=== PATIENT | female | born 1985 | race African-American/Black ===

== ENCOUNTER 2021-08-08 19:46 | Emergency (ER) | payer OTHER, SELFPAY ==
[2021-08-08 20:07] VITALS: BP 138/91; PULSE 76; RESP 16; TEMP 36.3; O2SAT 100; BMI 26.6
[2021-08-08 21:28] VITALS: BP 144/89; PULSE 62; RESP 16; O2SAT 100
[2021-08-08 22:02] LABS: Hematocrit 37.5 % (37-47); Hemoglobin 12.7 g/dl (12.0-16.0); Mean Corpuscular HGB Conc 33.9 g/dl (31.0-35.0); Mean Corpuscular Hemoglobin 32.8 pg (27.0-33.0); Mean Corpuscular Volume 96.9 fL (80-98); Mean Platelet Volume 11.5 fL (9.4-12.3); Platelet Count 178 X10*3/uL (160-400); Red Blood Count 3.87 X10*6/uL (4.20-5.50); Red Cell Distribution Width 13.6 % (11.0-16.0)
[2021-08-08 22:03] LABS: WBC ABN SCTR FOR CBC 1
[2021-08-08 22:03] LABS: Appearance Urine HAZY; Color Urine YELLOW; Glucose Urine UA NEG (NEG); Leukocyte Esterase Urine NEG (NEG); Nitrite Urine NEG (NEG); UACC Culture Trigger NO; Urine Blood TRACE (NEG); Urine Ketones 40 MG/DL (NEG); Urine Protein NEG (NEG-TRACE)
[2021-08-08 22:17] LABS: Mucus Urine 4+ /LPF; Squamous Epithelial Cell Urine 3+ /LPF
[2021-08-08 22:18] LABS: Bacteria Urine 1+ /LPF; WBC Urine 0 /HPF (0-4)
[2021-08-08 22:19] LABS: Anion Gap 10 (12-20); Blood Urea Nitrogen 8 mg/dL (9-16); Calcium 9.1 mg/dL (8.4-10.2); Carbon Dioxide 28 mmol/L (22-29); Chloride 104 mmol/L (96-108); Creatinine Clr Calc Pharmacy 112.8; Estimated Glomerular Filt Rate > 60; Glucose Random 86 mg/dL (60-115); Potassium 3.4 mmol/L (3.3-5.1); Sodium 139 mmol/L (135-145)
[2021-08-08] MEDS: Butalb/Acetamin/Caff 50/325/40 TABLET 1 TAB PO (22:47)
[2021-08-08] MEDS: Ondansetron ODT 4 MG TAB.RAPDIS TRANSLINGU (22:47)
[2021-08-08 22:54] LABS: Acanthocytes 1+ (0-2) /OIF; Band Neutrophils Percent 0 % (3-5); Eosinophils Percent Manual 1 % (0-4); Large Platelet PRESENT; Lymphocytes Percent Manual 27 % (20-40); Monocytes Percent Manual 5 % (2-11); Neutrophils Percent Manual 67 % (45-73); Ovalocytes 1+ (5-14) /OIF; Platelet Estimate NORMAL (NORMAL); Platelet Morphology Comment NORMAL; RBC Morphology NORMAL
[2021-08-08 22:55] LABS: Burr Cells 1+ (0-2) /OIF; Toxic Vacuolation PRESENT
[2021-08-08 23:05] LABS: Eosinophils Absolute Manual 0.1 X10*3/UL (0.0-0.8); Lymphocytes Absolute Manual 2.4 X10*3/uL (0.6-4.8); Monocytes Absolute Manual 0.4 X10*3/uL (0.0-1.2); Neutrophils Absolute Manual 5.9 X10*3/uL (2.2-7.9); White Blood Count 8.8 X10*3/uL (4.8-10.8)
[2021-08-08 23:21] VITALS: BP 115/75; PULSE 71; RESP 16; TEMP 36.7; O2SAT 99
--- NOTE | 2021-08-09 00:20 | ED_ITS ---
HPI - Head Injury General Chief complaint: Head Injury Stated complaint: Head injury Time Seen by Provider: 08/08/21 22:26 Source: patient Mode of arrival: ambulatory History of Present Illness HPI Narrative: 36-year-old female presenting to the ED complaining of headache, photophobia, nausea, vomiting, & increased fatigue s/p running into air conditioner yesterday. Reports stepped out of car and did not see air conditioner and hit left side of head. Denies LOC. Denies taking anticoagulation. Admits to 3 episodes of emesis today. Denies visual change/loss, numbness, tingling, weakness Complaint: head injury Related Data Previous Rx's Medication Instructions Recorded viciersgep-euiwdviodvroe-sxmopokl 1 cap PO Q4-6H PRN #14 cap 08/09/21 50 mg-300 mg-40 mg capsule (Fioricet) ondansetron HCl 4 mg tablet 4 mg PO Q8H PRN #10 tab 08/09/21 (Zofran) Allergies Allergy/AdvReac Type Severity Reaction Status Date / Time No Known Allergies Allergy Unverified 08/08/21 22:26 Review of Systems Review of Systems: Constitutional: No Fever, No Chills,+ Fatigue, No Malaise ENT/Mouth: No Hearing loss, No Ear Pain, No sore throat, No Swallowing Difficulty Eyes: + photophobia, No Vision Changes Cardiovascular: No Chest Pain, No SOB, No Palpitations Respiratory: No Cough, No Sputum, No Dyspnea Gastrointestinal: + Nausea, + Vomiting, No Diarrhea, No Constipation, No Abdominal pain Genitourinary:No Dysuria, No Urinary Frequency, No Hematuria,No Flank Pain, No Urinary Flow Changes, No Hesitancy Musculoskeletal: No joint pain, No Myalgias, No Joint Swelling Skin: No Skin Lesions, No rash Neuro: No Weakness, No Numbness, No Paresthesias, No Loss of Consciousness, + lightheadedness, + Headache Yes all other systems are reviewed and are negative Neurologic: Denies Abnormal speech present [facility] Past Medical History Attestation statement: The following information was validated with the patient. Medical History (Updated 08/09/21 @ 00:31 by MEGHAN Nur) No known health problems Social History Social History Advance Directives: No Advance Directives Information Provided: No Patient : No Physical Exam Vital Signs: Vital Signs: Last Vital Signs Temp 98.0 F 08/08/21 23:21 Pulse 71 08/08/21 23:21 Resp 16 08/08/21 23:21 BP 115/75 08/08/21 23:21 Pulse Ox 99 08/08/21 23:21 Body Mass Index 26.6 Const: General: cooperative, healthy appearing, no acute distress, well dev eloped, alert and awake Orientation/consciousness: patient oriented x3 Limitations: no limitations HENMT: Head: Yes normal to inspection, Yes atraumatic, No Joe's sign and No raccoon eyes Ears: hearing grossly normal bilaterally and external ears normal General nose exam: Normal external nose present Face and sinus: Yes normal facial exam Throat: Yes posterior oropharynx normal Eyes: General: appearance normal, both eyes and all related structures Pupils: Equal, round and reactive pupils present EOM: EOMs intact bilaterally Neck: Other: No midline cervical spinous tenderness Neck: Yes normal visual inspection and Yes no meningeal signs Resp: Effort & Inspection: normal respiratory effort and no respiratory distress Cardio: Rate: regular rate GI: Inspection: Yes normal to inspection Skin: Rashes: no rashes Wounds: no wounds Neuro: General: patient oriented x3, gait normal, tone normal, moves all extremities, no meningeal signs, no focal motor deficits and CN's II-XI intact bilaterally Cranial nerves: Yes CN's II-XII intact bilaterally, Yes Equal, round and reactive pupils present and Yes Bilaterally intact EOM present Cognition (Neuro): normal cognition Speech: No Abnormal speech present Gait exam (Neuro): Normal gait present Motor exam (neuro): 5/5 motor strength present throughout, Pronator motor function not present and no tremor noted Extrem: General: Yes normal to inspection Course Course Course Narrative: -0030--labs ordered in triage and unremarkable. On my re-ev aluation patient is sleeping comfortably, reports symptomatic improvement after Fioricet and Zofran MDM - Head Injury MDM Narrative Medical decision making narrative: 36-year-old female presenting to the ED complaining of headache, photophobia, nausea, vomiting, & increased fatigue s/p running into air conditioner yesterday. On exam vital signs stable, NAD, no focal neuro deficits, no evidence of trauma. [place] Head CT Rule considers head CT secondary to greater than 2 episodes of emesis. However episode was yesterday, emesis started today, this is likely post concussive syndrome, lower concern for ICH with MOA Plan: Discussed with patient strict return precautions and worrisome signs and symptoms Medical Records Attestation: I reviewed the patient's medical records. Lab Data Attestation: I reviewed the patient's lab results. Result diagrams: 08/08/21 21:54 08/08/21 21:54 Labs: Lab Results 08/08/21 08/08/21 08/08/21 Range/Units 21:54 21:54 21:57 WBC 8.8 (4.8-10.8) X10*3/uL RBC 3.87 L (4.20-5.50) X10*6/uL Hgb 12.7 (12.0-16.0) g/dl Hct 37.5 (37-47) % MCV 96.9 (80-98) fL MCH 32.8 (27.0-33.0) pg MCHC 33.9 (31.0-35.0) g/dl RDW 13.6 (11.0-16.0) % Plt Count 178 (160-400) X10*3/uL MPV 11.5 (9.4-12.3) fL Immature Gran % (Auto) Cancelled Neut % (Auto) Cancelled Lymph % (Auto) Cancelled [place] % (Auto) Cancelled Eos % (Auto) Cancelled Baso % (Auto) Cancelled Lymph # (Auto) Cancelled [place] # (Auto) Cancelled Eos # (Auto) Cancelled Baso # (Auto) Cancelled Abs Immat Gran (auto) Cancelled Absolute Neuts (auto) Cancelled Absolute Nucleated RBC 0.000 (0.0-0.012) X10*3/uL Nucleated RBC % (auto) 0.0 (0.0-0.2) /100WBC Neutrophils % (Manual) 67 (45-73) % Band Neutrophils % 0 L (3-5) % Lymphocytes % (Manual) 27 (20-40) % Monocytes % (Manual) 5 (2-11) % Eosinophils % (Manual) 1 (0-4) % Abs Neuts (Manual) 5.9 (2.2-7.9) X10*3/uL Lymphocytes # (Manual) 2.4 (0.6-4.8) X10*3/uL Monocytes # (Manual) 0.4 (0.0-1.2) X10*3/uL Eosinophils # (Manual) 0.1 (0.0-0.8) X10*3/UL Toxic Vacuolation PRESENT Platelet Estimate NORMAL (NORMAL) Large Platelets PRESENT Plt Morphology Comment NORMAL RBC Morphology NORMAL Ovalocytes 1+ (5-14) /OIF [place] Cells 1+ (0-2) /OIF Acanthocytes ([place]) 1+ (0-2) /OIF Sodium 139 (135-145) mmol/L Potassium 3.4 (3.3-5.1) mmol/L Chloride 104 (96-108) mmol/L Carbon Dioxide 28 (22-29) mmol/L Anion Gap 10 L (12-20) BUN 8 L (9-16) mg/dL Creatinine 0.72 (0.5-1.4) mg/dL Estim Creat Clear Calc 112.8 Estimated GFR > 60 Random Glucose 86 (60-115) mg/dL Calcium 9.1 (8.4-10.2) mg/dL Urine Color YELLOW Urine Appearance HAZY Urine pH 7.0 (5.0-8.0) Ur Specific [place] 1.020 (1.005-1.025) Urine Protein NEG (NEG-TRACE) MG/DL Urine Glucose (UA) NEG (NEG) MG/DL Urine Ketones 40 (NEG) MG/DL Urine Blood TRACE (NEG) Urine Nitrite NEG (NEG) Ur Leukocyte Esterase NEG (NEG) Urine RBC 1-4 (0) /HPF Urine WBC 0 (0-4) /HPF Ur Squamous Epith Cells 3+ /LPF Urine Bacteria 1+ /LPF Urine Mucus 4+ /LPF Discharge Plan Discharge Clinical Impression: Closed head injury Qualifiers: Encounter type: initial encounter Qualified Code(s): S09.90XA - Unspecified injury of head, initial encounter Concussion without loss of consciousness Qualifiers: Encounter type: initial encounter Qualified Code(s): S06.0X0A - Concussion without loss of consciousness, initial encounter Patient Disposition: Home, Self-Care Instructions: Concussion (ED), Head Injury (ED) Additional Instructions: Your blood work was reassuring. You likely have a concussion. Fioricet is a headache medication, take only when headache is severe Take Tylenol at home. Be aware Fioricet has Tylenol mixed in Zofran as an antinausea medication, take as needed Please have close follow-up with her primary care doctor Practice brain rest, avoid bright lights, avoid TV screens, avoid excessive phone use If he develop constant worsening headache/unremitting headache, persistent nausea/vomiting or weakness return to the ED Prescriptions: New ondansetron HCl [Zofran] 4 mg tablet 4 mg PO Q8H PRN (Reason: nausea and vomiting) Qty: 10 RF: 0 fmmejzmzlf-bsffqqwszhqux-zxmj [Fioricet] 50-300-40 mg capsule 1 cap PO Q4-6H PRN (Reason: headache) Qty: 14 RF: 0 Referrals: Physician,Unknown J [Primary Care Provider] - 2 days
== END 2021-08-09 00:43 | disposition home or self-care (01) ==
PROVIDERS: Emergency Provider Emergency Medicine
DX: S09.90XA Unspecified injury of head, initial encounter (principal); R51.9 Headache, unspecified; Y29.XXXA Contact with blunt object, undetermined intent, initial encounter; Y93.9 Activity, unspecified; Y92.9 Unspecified place or not applicable; Y99.9 Unspecified external cause status; Z79.899 Other long term (current) drug therapy
CPT/HCPCS: 36415; 80048; 81001; 85007; 85027; 99283; 99285